=== PATIENT | female | born 1985 | race Caucasian/White ===

== ENCOUNTER 2016-09-27 18:00 | Inpatient (IN) ==
[2016-09-27] MEDS ORDERED: Famotidine 20 MG/2 ML VIAL IVP PRN (18:56)
[2016-09-27] MEDS ORDERED: Metoclopramide 10 MG/2 ML VIAL IVP PRN (18:56)
[2016-09-27] MEDS ORDERED: Naloxone 0.4 MG/ML INJ IVP PRN (18:56)
[2016-09-27 19:11] LABS: Basophils # 0.1 K/mcL (0.0-0.2); Basophils % 0.8 %; Eosinophils # 0.2 K/mcL (0.0-0.6); Eosinophils % 1.5 %; Hemoglobin 12.9 g/dL (11.5-15.4); Immature Granulocytes % 4.7 % (0-4); Lymphocytes # 1.9 K/mcL (0.6-4.6); Lymphocytes % 18.2 %; Mean Corpuscular HGB Conc 33.9 g/dL (31.6-35.5); Mean Corpuscular Hemoglobin 32.1 pg (28.0-33.3); Mean Corpuscular Volume 94.5 fL (83.0-100.0); Mean Platelet Volume 10.9 fL (9.4-12.4); Monocytes # 0.8 K/mcL (0.0-1.3); Monocytes % 7.6 %; Neutrophils # 6.9 K/mcL (1.6-8.9); Platelet Count 154 K/mcL (140-400); Red Blood Count 4.02 M/mcL (3.82-4.97); Red Cell Distribution Width 14.4 % (11.5-14.5); Segmented Neutrophils % 67.2 %
[2016-09-27] MEDS ORDERED: miSOPROStol 25 MCG TABLET VG SCH (20:00)
--- NOTE | 2016-09-27 23:48 | OB/GYN History & Physical ---
Date of Encounter: 09/27/16 Time of Encounter: 23:46 Assessment and Plan (1) 41 weeks gestation of Current visit: Yes Status: Acute Admit for IOL History of Present Illness Chief complaint: Patient presents for IOL at 41 weeks gestation HPI: Ms. Evans is a 31 year old female at 41w0d with EDC of 09/20/2016 presents to labor and delivery for IOL for postdates. Patient reports irregular contractions and positive movement. Patient denies any LOF or VB. Blood type: O+, Rubella: Immune, Hep B: Negative, GBS: Negative. Past Med Surg Social Fam HX - Past Medical History Source: patient Medical history: no medical history Psychiatric history: no psych history - Past Surgical History Surgical History: no surgical history - Social History Smoking Status: Never smoker Alcohol use: none Drug use: none Occupational status: employed Current living situation: Home - Independent Activity Level: Independent ambulation Recent Out of Country Travel Within the Last 8 Weeks: No Exposure or Possible Exposure to Illness During Travel: No - Family History Mother Living Status: Still Living Hx Family Cardiac Disorders: Yes (HTN) Obstetrical History - Pregnancies : 1 Para: 0 Term: 0 : 0 Ab's: 0 Livin Review of System OB - Constitutional Constitutional ROS IM: no chills, no fever(s), no headache(s) - Cardiovascular Cardiovascular: no chest pain, no dyspnea, no edema, no irregular heart rhythm, no lightheadedness, no palpitations, no rapid heart rate, no slow heart rate, no syncope - Respiratory Respiratory: no cough - Gastrointestinal Gastrointestinal: no abdominal pain, no constipation, no cramping, no diarrhea, no heartburn, no nausea, no vomiting - Genitourinary Genitourinary: no abnormal vaginal bleeding, no dysuria, no flank pain, no urinary frequency, no urinary hesitancy, no urinary urgency, no vaginal discharge, no vaginal odor, no vaginal pruritis Exam - Constitutional Constitutional: well developed, well nourished, no acute distress, average body habitus - HEENT HEENT: Normocephaly, Mucus Membranes Moist - Neck Neck exam: full ROM, supple - Lungs Respiratory exam: CTAB - Cardiovascular Cardiovascular exam: RRR, +S1, +S2 - Abdomen Abdomen: Present: bowel sounds normal, gravid, non tender - Extremities Extremities exam: full ROM, normal capillary refill Deep Tendon Reflex Grade: 2+ Normal - Vagina Vagina: Present: normal moisture - Cervix Dilation: 1 (1.5) Effacement: 80 Station: -2 - Uterus Uterus exam: Present: normal size, normal contour - Anus/Rectum Anus/Rectum: Present: normal perianal skin (FHR 125 bpm moderate variability + 15x15 accels no decels noted irregular contractions noted. CAt. 1 tracing.) Results Result Diagrams: 09/27/16 19:00 Abnormal lab results Immature Gran % 4.7 % (0-4) H 09/27/16 19:00 All other labs normal. - VTE Reasons for not Prescribing Prophylaxis: Treatment not Indicated - Low risk for VTE
[2016-09-28] MEDS: Ringers Solution, Lactated 1,000 ML IVC SCH ×2 (00:17→08:11)
--- NOTE | 2016-09-28 00:41 | OB Labor Progress Note ---
Date of Encounter: 09/28/16 Time of Encounter: 00:39 Labor Progress Note - Subjective Subjective: Patient resting in bed, patient denies any pain at this time. Discussed POC with patient. Patient denies any questions or concerns. - Cervix Cervix: 3/80/-1 - Heart Tones Heart Tones: 120 bpm moderate variability +15x15 accels no decels noted. CAt. 1 tracing. - [place]: 1-3 min apart - Interventions Interventions: SVE, AROM small amount of clear fluid noted. - Plan Plan: Continue labor management. Will start pitocin per protocol if needed for effective labor pattern.
[2016-09-28] MEDS ORDERED: *HR* Nalbuphine 20 MG/ML AMPUL IVP PRN (00:42)
[2016-09-28] MEDS ORDERED: Oxytocin 20 units/ LR 1000 mL 20 UNIT/1,000 ML BAG IVC SCH (00:45)
--- NOTE | 2016-09-28 11:17 | OB Labor Progress Note ---
Date of Encounter: 09/28/16 Time of Encounter: 11:15 Labor Progress Note - Subjective Subjective: Pt reports moderate discomfort with contractions. - Cervix Cervix: 4-5/80/-1 - Heart Tones Heart Tones: Category I - [place]: 3-3.5 minutes - Interventions Interventions: IUPC placed - Plan Plan: Continue to titrate pitocin for adequate labor pattern. Reposition frequently. Anticipate .
--- NOTE | 2016-09-28 14:12 | OB Labor Progress Note ---
Date of Encounter: 09/28/16 Time of Encounter: 14:09 Labor Progress Note - Subjective Subjective: Pt reports feeling less discomfort with Nubain. - Cervix Cervix: 5-6/80/-1 - Heart Tones Heart Tones: Category II, variable decelerations noted - [place] Jennings: 1-2.5 minutes - Interventions Interventions: Pt repositioned multiple times. IV fluid bolus started. O2 at 10 liters. Will consider amnioinfusion if variable decelerations persist. - Plan Plan: Continue to monitor and titirate pitocin. Consider amnioinfusion. Anticipate .
[2016-09-28] MEDS ORDERED: 0.9 % Sodium Chloride 1,000 ML ONE (14:14)
[2016-09-28] MEDS ORDERED: Ringers Solution, Lactated 1,000 ML ONE (14:14)
--- NOTE | 2016-09-28 14:55 | OB Labor Progress Note ---
Date of Encounter: 09/28/16 Time of Encounter: 14:51 Labor Progress Note - Subjective Subjective: Pt states she is coping well on Nubain - Cervix Cervix: 7/100/0 - Heart Tones Heart Tones: 120/moderate/variables Ct II - Interventions Interventions: Unabel to adequately trace heart rate. FSE applied. - Plan Plan: continue pitocin, amnioinfusion, anticipate
--- NOTE | 2016-09-28 17:03 | OB Labor Progress Note ---
Date of Encounter: 09/28/16 Time of Encounter: 17:01 Labor Progress Note - Subjective Subjective: Pt breathing with contractions. She now reports some pelvic pressure as well. - Cervix Cervix: 8/90/0 - Heart Tones Heart Tones: Category I - [place]: 2-2.5 minutes - Plan Plan: Continue to monitor. Anticipate .
[2016-09-28] MEDS ORDERED: Lidocaine 1% 20 ML MDV ONE (20:27)
--- NOTE | 2016-09-28 21:13 | OB/GYN Procedure Note ---
Delivery - Delivery Date: 09/28/16 Provider: Allie Cook Intrapartum events: none Delivery induction: misoprostol Delivery augmentation: rupture of membranes, pitocin Delivery monitor: internal FHT, internal uterine Anesthesia: intravenous Estimated Blood Loss: 400 - Infant (s) A Infant Delivery Date: 09/28/16 Delivery Time: 20:33 Presentation: vertex Position: PETROS Route of delivery: Gender: Male Viability: Viable Pounds: 8 Ounces: 4 Weight Gram: 3.745 kg at 1 minute: 8 at 5 mins: 9 Shoulder Dystocia: not encountered Specimens collected: cord blood Placenta: spontaneous - Repair Episiotomy: none Laceration Description: Perineal - 1st Degree - Complications Delivery complications: none - Disposition Mom disposition: stable in LDR [place] disposition: stable in LDR - Comments Comments: Pt progressed to complete dilation and pushed effectively for two hours to undergo for viable male weighing 8lbs. 4oz. with apgars 8 and 9. After a two minute delay the cord was clamped and cut and the placenta delivered spontaneous and intact. Bilateral first degree perineal lacerations were repaired using 3- and 4-0 Vicryl. Mother and baby stable in kangaroo care following delivery.
[2016-09-29] MEDS ORDERED: Lanolin 28 GM TUBE TP PRN (00:12)
[2016-09-29] MEDS ORDERED: *HR* HYDROcodone/Acet 5/325 mg TABLET PO PRN (00:12)
[2016-09-29] MEDS ORDERED: Benzocaine/Menthol 56 GM AEROSOL SPRAY TP PRN (00:12)
[2016-09-29] MEDS ORDERED: Acetaminophen 325 MG TABLET PO PRN (00:12)
[2016-09-29] MEDS ORDERED: Oxytocin 20 units/ LR 1000 mL 20 UNIT/1,000 ML BAG IVC ONE (00:12)
[2016-09-29] MEDS ORDERED: Measles/Mumps/Rubella Vacc 0.5 ML VIAL SQ PRN (00:12)
[2016-09-29] MEDS ORDERED: Oxytocin 20 units/ LR 1000 mL 20 UNIT/1,000 ML BAG IV SCH (00:15)
[2016-09-29] MEDS: Ibuprofen 600 MG TABLET PO PRN ×3 (00:54→19:09)
[2016-09-29 06:56] LABS: Basophils # 0.1 K/mcL (0.0-0.2); Basophils % 0.2 %; Eosinophils # 0.1 K/mcL (0.0-0.6); Eosinophils % 0.3 %; Hematocrit 31.1 % (35.3-44.9); Immature Granulocytes % 3.3 % (0-4); Lymphocytes % 10.1 %; Mean Corpuscular HGB Conc 35.4 g/dL (31.6-35.5); Mean Corpuscular Hemoglobin 33.2 pg (28.0-33.3); Mean Platelet Volume 11.1 fL (9.4-12.4); Monocytes # 1.7 K/mcL (0.0-1.3); Monocytes % 7.1 %; Neutrophils # 19.2 K/mcL (1.6-8.9); Platelet Count 148 K/mcL (140-400); Red Blood Count 3.31 M/mcL (3.82-4.97); Red Cell Distribution Width 14.5 % (11.5-14.5)
[2016-09-29 07:00] LABS: Lymphocytes # 2.5 K/mcL (0.6-4.6)
[2016-09-29] MEDS: Prenatal Vit/FA 1 EACH TABLET PO SCH (07:47)
--- NOTE | 2016-09-29 09:37 | OB/GYN Progress Note ---
Date of Encounter: 09/29/16 Time of Encounter: 09:35 - Assessment and Plan (1) (normal spontaneous vaginal delivery) Current Visit: Yes Status: Acute Pt meeting PPD#1 milestones. Anticipate discharge PPD#2. Subjective - Subjective Patient reports: appetite normal, voiding normally, pain well controlled, ambulating normally : doing well Objective - Latest Vital Signs Latest vital signs: Vital Signs Temp Pulse Resp BP Pulse Ox 09/29/16 09:07 98.1 F 108 14 107/69 09/29/16 07:55 16 09/29/16 00:40 98.4 F 92 14 114/74 97 09/28/16 23:30 98.3 F 94 14 120/68 99 09/28/16 22:30 98.1 F 99 14 116/64 98 Intake and Output 09/28/16 09/29/16 09/29/16 23:59 07:59 15:59 Output Total 1000 / 1000 Balance -1000 / -1000 Output: Urine 1000 / 1000 Other: Weight 89.4 kg - Exam Lungs: bilateral: normal Chest: Normal S1, Normal S2 Extremities: Present: normal, edema (mild edema bilaterally) Abdomen: Present: soft Uterus: Present: normal, firm Uterus Position: 1 Finger Below Umbilicus - Labs Labs: Laboratory Results - last 24 hr 09/29/16 06:36 WBC 24.3 H D RBC 3.31 L Hgb 11.0 L D Hct 31.1 L MCV 94.0 MCH 33.2 MCHC 35.4 RDW 14.5 Plt Count 148 MPV 11.1 Immature Gran % 3.3 Seg Neutrophils % 79.0 Lymphocytes % 10.1 Monocytes % 7.1 Eosinophils % 0.3 Basophils % 0.2 Neutrophils # 19.2 H Lymphocytes # 2.5 Monocytes # 1.7 H Eosinophils # 0.1 Basophils # 0.1
--- NOTE | 2016-09-30 09:24 | Discharge Summary ---
Date of Encounter: 09/30/16 Time of Encounter: 09:21 - Discharge Diagnosis (1) (normal spontaneous vaginal delivery) Priority: Primary Status: Acute Comments: Pt meeting milestones. (2) Mother currently breast-feeding Priority: Secondary Status: Acute - Discharge Medications Home Medications: Vit/Iron Fumarate/FA [ Tablet] PO DAILY 09/28/16 [History] Benzocaine/Menthol Bokeelia [Dermoplast Bokeelia] 1 appl TP QID PRN #0 aerosol [Rx] Breast Pump [BREAST PUMP] 1 each .ROUTE AD #1 each 09/30/16 [Rx] Docusate [Colace] 100 mg PO BID capsule 09/30/16 [Rx] Ibuprofen [Motrin] 600 mg PO Q6HR PRN #0 tablet 09/30/16 [Rx] Lanolin 1 appl TP Q4HR PRN #0 tube 09/30/16 [Rx] Allergies/Adverse Reactions: Allergies No Known Allergies Allergy (Verified 09/28/16 02:59) Data Procedures and tests throughout hospitalization: Laboratory Tests 09/27/16 09/29/16 19:00 06:36 WBC 10.3 24.3 H D RBC 4.02 3.31 L Hgb 12.9 11.0 L D Hct 38.0 31.1 L MCV 94.5 94.0 MCH 32.1 33.2 MCHC 33.9 35.4 RDW 14.4 14.5 Plt Count 154 148 MPV 10.9 11.1 Immature Gran % 4.7 H 3.3 Seg Neutrophils % 67.2 79.0 Lymphocytes % 18.2 10.1 Monocytes % 7.6 7.1 Eosinophils % 1.5 0.3 Basophils % 0.8 0.2 Neutrophils # 6.9 19.2 H Lymphocytes # 1.9 2.5 Monocytes # 0.8 1.7 H Eosinophils # 0.2 0.1 Basophils # 0.1 0.1 Date of admission: 09/27/16 18:07 Primary care physician: Jeffery Rich, Consults: 09/29/16 00:12 Consult to [employer] [CONS] Routine Comment: Vaginal delivery, consult needed Discharging clinician: Allie Cook Anticipated date of discharge: 09/30/16 - Patient Status Disposition: Home, Self-Care Condition: Good Functional capacity at discharge: independent ambulation Overall status at discharge: patient is progressing back to baseline - Discharge Instructions Follow Up With: Jeffery Rich DO [Primary Care Provider] - Allie Cook CNM [Non-Partnered Physician] - - Diet and Activity Activity: increase activity as tolerated Diet: advance to your usual diet Hospital Course Reason for admission: induction of labor Delivery: Episiotomy: none Laceration: 1st degree Other procedures: none complications: none Discharge diagnosis: IUP at term delivered [place] baby: male Hospital course: - Delivery Date: 09/28/16 Provider: Allie Cook Intrapartum events: none Delivery induction: misoprostol Delivery augmentation: rupture of membranes, pitocin Delivery monitor: internal FHT, internal uterine Anesthesia: intravenous Estimated Blood Loss: 400 - Infant (s) A Infant Delivery Date: 09/28/16 Delivery Time: 20:33 Presentation: vertex Position: PETROS Route of delivery: Gender: Male Viability: Viable Pounds: 8 Ounces: 4 Weight Gram: 3.745 kg at 1 minute: 8 at 5 mins: 9 Shoulder Dystocia: not encountered Specimens collected: cord blood Placenta: spontaneous - Repair Episiotomy: none Laceration Description: Perineal - 1st Degree - Complications Delivery complications: none - Disposition Mom disposition: home PPD#2 [place] disposition: home with mother, Time Attestation: Total time spent providing and/or coordinating discharge services: Time Spent: Less than 30 minutes Exam - Constitutional Vitals: Temp Pulse Resp BP Pulse Ox 98.3 F 96 16 116/74 98 09/29/16 21:05 09/29/16 21:05 09/29/16 21:05 09/29/16 21:05 09/29/16 21:05 General appearance IM: A&O X 3, pleasant, no acute distress - Respiratory Respiratory exam: Present: CTAB - Cardiovascular Cardiovascular exam IM: Present: RRR, +S1, +S2 - GI/Abdominal GI/Abdominal exam IM: soft - Rectal Rectal exam: deferred - Uterine Tone: Firm Uterus Position: 1 Finger Below Umbilicus - Extremities Exam Extremities exam IM: Present: normal inspection, pedal edema (1+ bilaterally) - Neurological Exam Neurological exam: normal gait, oriented X3 - Psychiatric Additional comments: reports good mood
[2016-09-30 09:42] VITALS: BP 147/84
[2016-09-30] MEDS: Prenatal Vit/FA 1 EACH TABLET PO SCH (10:10)
== END 2016-09-30 13:49 | disposition home or self-care (01) | DRG 775 ==
LOC: 1NENULAB 18:07 → 1NENUOBS 09-28 22:45
PROVIDERS: ADMIT Registered Nurse; ATTEND Registered Nurse

== ENCOUNTER 2018-10-22 11:17 | Inpatient (IN) ==
[~2018-10-22 11:17] MED LIST: *HR* Nalbuphine 10 MG/ML AMPUL IVP PRN; Famotidine 20 MG/2 ML VIAL IVP PRN; Metoclopramide 10 MG/2 ML VIAL IVP PRN; Naloxone 0.4 MG/ML INJ IVP PRN
[2018-10-22] MEDS ORDERED: Ringers Solution, Lactated 1,000 ML IVC SCH (11:30)
[2018-10-22 11:58] LABS: Basophils # 0.1 K/mcL (0.0-0.2); Basophils % 0.7 %; Eosinophils # 0.1 K/mcL (0.0-0.6); Eosinophils % 0.6 %; Hematocrit 43.1 % (35.3-44.9); Hemoglobin 14.7 g/dL (11.5-15.4); Immature Granulocytes % 2.8 % (0-4); Lymphocytes # 1.9 K/mcL (0.6-4.6); Mean Corpuscular HGB Conc 34.1 g/dL (31.6-35.5); Mean Corpuscular Hemoglobin 33.3 pg (28.0-33.3); Mean Corpuscular Volume 97.7 fL (83.0-100.0); Mean Platelet Volume 11.8 fL (9.4-12.4); Monocytes # 0.9 K/mcL (0.0-1.3); Monocytes % 6.7 %; Platelet Count 164 K/mcL (140-400); Red Blood Count 4.41 M/mcL (3.82-4.97); Red Cell Distribution Width 13.9 % (11.5-14.5); Segmented Neutrophils % 75.2 %
[2018-10-22 12:16] LABS: Amphetamine Screen,Urine Negative ng/mL (Cutoff=1000); Barbiturate Screen,Urine Negative ng/mL (Cutoff=200); Benzodiazepines Screen,Urine Negative ng/mL (Cutoff=200); Cannabinoid Screen,Urine Negative ng/mL (Cutoff = 50); Cocaine Screen,Urine Negative ng/mL (Cutoff= 300); Opiate Screen,Urine Negative ng/mL (Cutoff=300); Phencyclidine Screen,Urine Negative ng/mL (Cutoff=25)
[2018-10-22] MEDS ORDERED: Oxytocin 20 units/ LR 1000 mL 20 UNIT/1,000 ML BAG IVC ONE (12:43)
[2018-10-22] MEDS ORDERED: miSOPROStol 100 MCG TABLET PO ONE (13:26)
--- NOTE | 2018-10-22 14:35 | OB/GYN Procedure Note ---
OB-[facility]: Procedure - Diagnosis Date of procedure: 10/22/18 Pre-op diagnosis: post hemorrhage Post-op diagnosis: same - Procedure Procedure: manual extraction of placenta Surgeon: Ursula Gan Was there an executive staff assistant present: No Anesthesia Type: None Fluids: crystalloid Procedure Complications: none Specimens collected: none Disposition: no change Findings: retained placental fragments, uterine atony Narrative: Patient underwent an uncomplicated spontaneous vaginal delivery of the viable healthy female infant. Post delivery the placenta did not separate easily. It did finally deliver spontaneously after an hour. She began having bleeding. On evaluation of the placenta there were small areas of fragments that looked to be separate. Manual exploration of the uterus was performed. I was able to palpate and feel these pieces of placenta and remove them without difficulty. Following manual extraction of the remaining placenta we had some uterine atony. This was treated with Methergine and mesial processable. At that time the bleeding stopped. The uterus was firm. The patient tolerated the procedure well. We will measure the blood loss. We will continue close observation. The procedure was explained at length to the patient and her . She tolerated the procedure well.
--- NOTE | 2018-10-22 14:46 | OB/GYN History & Physical ---
Date of Encounter: 10/22/18 Time of Encounter: 11:30 Assessment and Plan (1) 40 weeks gestation of Current visit: Yes Status: Acute Admit for spontaneous labor at 40w2d Patient may have epidural or IV Nubain if she requests but expresses plans for natural childbirth. (2) Blood type O+ Current visit: Yes Status: Acute Collect cord blood at delivery (3) Spontaneous onset of labor Current visit: Yes Status: Acute Admit for labor Anticipate (4) NST (non-stress test) reactive Current visit: Yes Status: Acute FHR 150 bpm, moderate variability, +15x15 accels, no decels Q2 min contractions History of Present Illness Chief complaint: Labor and SROM HPI: Ms. Evans is a 33 year old female at 40w2d who presents with complaints of contractions that began at 0500 this am and SROM of meconium fluid that happened at 1020 this morning. She does reports positive movement and denies bleeding. She denies any medical history with this or the previous one. She is grossly ruptured upon admission to labor and delivery and is found to be 6-7 cm on arrival per RN exam. Blood Type O+ GBS negative HbSAG negative Rubella Immune Varicella Immune T. Pall negative Past Med Surg Social Fam HX - Past Medical History Source: patient Medical history: no medical history Psychiatric history: no psych history - Past Surgical History Surgical History: no surgical history - Social History Smoking Status: Never smoker Smokeless Tobacco Status: No Alcohol use: none Drug use: none Occupational status: employed Current living situation: Home - Independent, With Family Activity Level: Independent ambulation Recent Out of Country Travel Within the Last 8 Weeks: No Exposure or Possible Exposure to Illness During Travel: No - Family History Mother Living Status: Still Living Hx Family Cardiac Disorders: Yes (hypertension) Hx Family Endocrine Disorder: Yes (hyperthyroid) Obstetrical History - Pregnancies : 2 Para: 1 Term: 1 : 0 Ab's: 0 Livin Medications and Allergies Vit/Iron Fumarate/FA [ Tablet] PO DAILY 09/28/16 [History] Allergy/AdvReac Type Severity Reaction Status Date / Time No Known Allergies Allergy Verified 09/28/16 02:59 Exam - Constitutional Constitutional: well developed, well nourished, no acute distress, average body habitus - HEENT HEENT: PERRL, Normocephaly, Mucus Membranes Moist - Neck Neck exam: full ROM - Lungs Respiratory exam: CTAB - Cardiovascular Cardiovascular exam: RRR, +S1, +S2 - Breasts Breast: bilateral: normal - Abdomen Abdomen: Present: bowel sounds normal, gravid, non tender - Extremities Extremities exam: full ROM, normal capillary refill, normal inspection Deep Tendon Reflex Grade: 2+ Normal - Vulva Vulva: bilateral: normal (varicose veins noted) - Vagina Vagina: Present: normal moisture - Cervix Dilation: 6 Effacement: 80 Station: -2 - Uterus Uterus exam: Present: normal size, normal contour - Anus/Rectum Anus/Rectum: Present: normal perianal skin Results Result Diagrams: 10/22/18 11:23 Abnormal lab results WBC 13.4 K/mcL (4.3-11.1) H 10/22/18 11:23 Neutrophils # 10.0 K/mcL (1.6-8.9) H 10/22/18 11:23 All other labs normal. - VTE Reasons for not Prescribing Prophylaxis: Treatment not Indicated - Low risk for VTE
--- NOTE | 2018-10-22 15:17 | OB/GYN Procedure Note ---
Delivery - Delivery Date: 10/22/18 Provider: Trista Sethi Intrapartum events: meconium Delivery induction: none Delivery monitor: external FHT, external uterine Anesthesia: local Quantitated Blood Loss: 1,150 (400 with delivery, 750 after placenta) - Infant (s) Infant A Delivery Date: 10/22/18 Infant Delivery Time: 12:55 Presentation: vertex Position: PETROS Route of delivery: Gender: Female Viability: Viable Pounds: 8 Ounces: 13 Weight Gram: 4000 kg at 1 minute: 8 at 5 mins: 9 Shoulder Dystocia: not encountered Placenta: uterine exploration, retained Cord: nuchal cord, 3 umbilical vessels, delivered through nuchal - Repair Episiotomy: none Laceration Description: Periurethral (no repair needed), Perineal - 1st Degree - Complications Delivery complications: hemorrhage, uterine atony, retained placenta Delivery comments: Called to room for patient with feeling of pressure and urge to push. Upon SVE patient was found to be 9 cm and was able to push with a few contractions. She progressed to an anterior lip which was easily reduced over the head and proceeded to deliver. Under maternal effort, spontaneous delivery of viable female infant over first-degree perineal laceration, repaired with 3-0 Vicryl under local anesthesia. placed on maternal abdomen for drying and stimulation. Cord clamped and cut after pulsation ceased. Nuchal cord noted after delivery of head, was able to deliver through the nuchal with the somersault maneuver. No shoulder dystocia encountered. Thick meconium was noted upon patient's arrival and at delivery. Placenta was noted to be adherent to the uterine wall and was not delivered after one hour. By mouth Cytotec 400 g was given and IV Pitocin was running at a wide-open rate. Dr. Gan was called to assist with placental removal. As I was waiting for placenta to be delivered, bleeding was light. 400 mL's of blood loss at time of delivery. Moments after Dr. Gan was called, the placenta did deliver and appeared as though there were some missing cotyledons. Initially patient's bleeding was light but then became heavy. Several large clots were removed with manual extraction but the bleeding continued. Upon Dr. Gan's ar rival she was able to manually extract 2 small pieces of placenta. One dose of IM Methergine was given as well as 500 g of rectal Cytotec to control bleeding and encourage uterine tone as multiple episodes of atony were noted. Blood loss with placental extraction was an additional 750 mL's. Patient tolerated this procedure extremely well and did not require any IV sedation or analgesia. See Dr. Gan's procedure note for further details. Mother and in kangaroo care for 2 hour recovery. - Disposition Mom disposition: stable in LDR disposition: stable in LDR
[2018-10-22] MEDS ORDERED: Methylergonovine 0.2 MG/ML AMPUL IM ONE (15:41)
[2018-10-22] MEDS ORDERED: miSOPROStol 100 MCG TABLET RC STA (15:43)
[2018-10-22] MEDS ORDERED: Oxytocin 20 units/ LR 1000 mL 20 UNIT/1,000 ML BAG IVC SCH (16:34)
[2018-10-22] MEDS ORDERED: Measles/Mumps/Rubella Vacc 0.5 ML VIAL SQ PRN (16:34)
[2018-10-22] MEDS ORDERED: Acetaminophen 325 MG TABLET PO PRN (16:34)
[2018-10-22] MEDS ORDERED: Ibuprofen 600 MG TABLET PO PRN (16:34)
[2018-10-22] MEDS ORDERED: *HR* HYDROcodone/Acet 5/325 mg TABLET PO PRN (16:34)
[2018-10-23 07:56] VITALS: BP 112/77
[2018-10-23] MEDS ORDERED: Prenatal Vit/FA 1 EACH TABLET PO SCH (09:00)
[2018-10-23] MEDS ORDERED: cephALEXin 500 MG CAPSULE PO SCH (09:00)
[2018-10-23 09:08] LABS: Basophils # 0.1 K/mcL (0.0-0.2); Basophils % 0.7 %; Eosinophils # 0.1 K/mcL (0.0-0.6); Eosinophils % 0.8 %; Hematocrit 36.7 % (35.3-44.9); Immature Granulocytes % 2.6 % (0-4); Lymphocytes # 3.2 K/mcL (0.6-4.6); Lymphocytes % 20.3 %; Mean Corpuscular HGB Conc 34.6 g/dL (31.6-35.5); Mean Corpuscular Volume 98.4 fL (83.0-100.0); Mean Platelet Volume 11.4 fL (9.4-12.4); Monocytes % 6.4 %; Neutrophils # 10.8 K/mcL (1.6-8.9); Platelet Count 136 K/mcL (140-400); Red Blood Count 3.73 M/mcL (3.82-4.97); Red Cell Distribution Width 14.4 % (11.5-14.5); Segmented Neutrophils % 69.2 %
[2018-10-23 09:10] LABS: Hemoglobin 12.7 g/dL (11.5-15.4)
--- NOTE | 2018-10-23 10:15 | Discharge Summary ---
Date of Encounter: 10/23/18 Time of Encounter: 10:10 - Discharge Diagnosis (1) (normal spontaneous vaginal delivery) Priority: Primary Status: Acute Comments: Pt states feels well, breast feeding, tolerates diet, bleeding minimal, desires discharge. - Discharge Medications Prescriptions: New cephALEXin [Keflex] 500 mg PO BID #10 capsule Acetaminophen [Tylenol] 650 mg PO Q6HR PRN tablet PRN Reason: Mild Pain Ibuprofen [Motrin] 600 mg PO Q6HR PRN #60 tablet PRN Reason: Cramping Docusate [Colace] 100 mg PO BID #30 capsule Discontinued Vit/Iron Fumarate/FA [ Tablet] PO DAILY Home Medications: Acetaminophen [Tylenol] 650 mg PO Q6HR PRN tablet 10/23/18 [Rx] Docusate [Colace] 100 mg PO BID #30 capsule 10/23/18 [Rx] Ibuprofen [Motrin] 600 mg PO Q6HR PRN #60 tablet 10/23/18 [Rx] cephALEXin [Keflex] 500 mg PO BID #10 capsule 10/23/18 [Rx] Allergies/Adverse Reactions: Allergy/AdvReac Type Severity Reaction Status Date / Time No Known Allergies Allergy Verified 09/28/16 02:59 Data Procedures and tests throughout hospitalization: Laboratory Tests 10/22/18 10/22/18 10/23/18 11:23 11:35 08:50 WBC 13.4 H 15.6 H RBC 4.41 3.73 L Hgb 14.7 12.7 D Hct 43.1 36.7 MCV 97.7 98.4 MCH 33.3 34.0 H MCHC 34.1 34.6 RDW 13.9 14.4 Plt Count 164 136 L MPV 11.8 11.4 Immature Gran % 2.8 2.6 Seg Neutrophils % 75.2 69.2 Lymphocytes % 14.0 20.3 Monocytes % 6.7 6.4 Eosinophils % 0.6 0.8 Basophils % 0.7 0.7 Neutrophils # 10.0 H 10.8 H Lymphocytes # 1.9 3.2 Monocytes # 0.9 1.0 Eosinophils # 0.1 0.1 Basophils # 0.1 0.1 Urine Opiates Screen Negative Ur Barbiturates Screen Negative Ur Phencyclidine Scrn Negative Ur Amphetamines Screen Negative U Benzodiazepines Scrn Negative Urine Cocaine Screen Negative U Marijuana (THC) Screen Negative Ur Drug Screen Interp See Below Labs on day of discharge: Labs from last 24 hours 10/23/18 10/22/18 10/22/18 08:50 11:35 11:23 WBC 15.6 H 13.4 H RBC 3.73 L 4.41 Hgb 12.7 D 14.7 Hct 36.7 43.1 MCV 98.4 97.7 MCH 34.0 H 33.3 MCHC 34.6 34.1 RDW 14.4 13.9 Plt Count 136 L 164 MPV 11.4 11.8 Immature Gran % 2.6 2.8 Seg Neutrophils % 69.2 75.2 Lymphocytes % 20.3 14.0 Monocytes % 6.4 6.7 Eosinophils % 0.8 0.6 Basophils % 0.7 0.7 Neutrophils # 10.8 H 10.0 H Lymphocytes # 3.2 1.9 Monocytes # 1.0 0.9 Eosinophils # 0.1 0.1 Basophils # 0.1 0.1 Urine Opiates Screen Negative Ur Barbiturates Screen Negative Ur Phencyclidine Scrn Negative Ur Amphetamines Screen Negative U Benzodiazepines Scrn Negative Urine Cocaine Screen Negative U Marijuana (THC) Screen Negative Ur Drug Screen Interp See Below Date of admission: 10/22/18 11:17 Consults: 10/22/18 16:34 Consult to Rehab Nurse [CONS] Routine Comment: Vaginal delivery, consult needed Discharging clinician: Britta Velasco Anticipated date of discharge: 10/23/18 - Patient Status Disposition: Home, Self-Care Condition: Good Functional capacity at discharge: independent ambulation Overall status at discharge: patient is progressing back to baseline - Discharge Instructions - Diet and Activity Activity: resume usual activities as tolerated Diet: regular diet ( ) Hospital Course Reason for admission: active labor Delivery: Episiotomy: none Laceration: 1st degree complications: retained placenta Discharge diagnosis: IUP at term delivered [place] baby: female Hospital course: Delivery - Delivery Date: 10/22/18 Provider: Trista Sethi Intrapartum events: meconium Delivery induction: none Delivery monitor: external FHT, external uterine Anesthesia: local Quantitated Blood Loss: 1,150 (400 with delivery, 750 after placenta) - (s) A Infant Delivery Date: 10/22/18 Delivery Time: 12:55 Presentation: vertex Position: PETROS Route of delivery: Gender: Female Viability: Viable Pounds: 8 Ounces: 13 Weight Gram: 4000 kg at 1 minute: 8 at 5 mins: 9 Shoulder Dystocia: not encountered Placenta: uterine exploration, retained Cord: nuchal cord, 3 umbilical vessels, delivered through nuchal - Repair Episiotomy: none Laceration Description: Periurethral (no repair needed), Perineal - 1st Degree - Complications Delivery complications: hemorrhage, uterine atony, retained placenta Delivery comments: Called to room for patient with feeling of pressure and urge to push. Upon SVE patient was found to be 9 cm and was able to push with a few contractions. She progressed to an anterior lip which was easily reduced over the head and proceeded to deliver. Under maternal effort, spontaneous delivery of viable female over first-degree perineal laceration, repaired with 3-0 Vicryl under local anesthesia. placed on maternal abdomen for drying and stimulation. Cord clamped and cut after pulsation ceased. Nuchal cord noted after delivery of head, was able to deliver through the nuchal with the somersault maneuver. No shoulder dystocia encountered. Thick meconium was noted upon patient's arrival and at delivery. Placenta was noted to be adherent to the uterine wall and was not delivered after one hour. By mouth Cytotec 400 g was given and IV Pitocin was running at a wide-open rate. Dr. Gan was called to assist with placental removal. As I was waiting for placenta to be delivered, bleeding was light. 400 mL's of blood loss at time of delivery. Moments after Dr. Gan was called, the placenta did deliver and appeared as though there were some missing cotyledons. Initially patient's bleeding was light but then became heavy. Several large clots were removed with manual extraction but the bleeding continued. Upon Dr. Gan's arrival she was able to manually extract 2 small pieces of placenta. One dose of IM Methergine was given as well as 500 g of rectal Cytotec to control bleeding and encourage uterine tone as multiple episodes of atony were noted. Blood loss with placental extraction was an additional 750 mL's. Patient tolerated this procedure extremely well and did not require any IV sedation or analgesia. See Dr. Gan's procedure note for further details. Mother and in kangaroo care for 2 hour recovery. - Disposition Mom disposition: stable in PP and appropriate for discharge, Time Attestation: Total time spent providing and/or coordinating discharge services: Time Spent: Less than 30 minutes Exam - Constitutional Vitals: Temp Pulse Resp BP Pulse Ox 98.3 F 91 16 112/77 97 10/23/18 07:55 10/23/18 07:55 10/23/18 07:55 10/23/18 07:55 10/23/18 05:20 General appearance IM: A&O X 3 - Respiratory Respiratory exam: Present: CTAB - Cardiovascular Cardiovascular exam IM: Present: RRR - GI/Abdominal GI/Abdominal exam IM: soft - Uterine Tone: Firm Uterus Position: 1 Finger Below Umbilicus - Extremities Exam Extremities exam IM: Present: normal capillary refill, normal inspection - Psychiatric Additional comments: reports good mood
== END 2018-10-23 14:56 | disposition home or self-care (01) | DRG 806 ==
LOC: 1NENULAB → 1NENUOBS 16:31
PROVIDERS: ADMIT Registered Nurse; ATTEND Registered Nurse